=== PATIENT | female | born 1980 | race Two or more races ===

== ENCOUNTER 2020-10-02 12:29 | Inpatient (IN) | payer MEDICAID, OTHER ==
[~2020-10-02] VITALS: Ht 162.6 cm; Wt 82.6 kg
[2020-10-02] MEDS ORDERED: THIAMINE 100mg/ml INJ (200mg/2ml VIAL) IV ONE (12:45)
[2020-10-02] MEDS ORDERED: SODIUM CHLORIDE 0.9% 1,000 ML IV ONE ×2 (12:45)
[2020-10-02] MEDS ORDERED: ONDANSETRON HCL 4 MG/2 ML VIAL IV ONE (13:00)
[2020-10-02 13:12] LABS: Basophils # (auto) 0.1 10 ^3/uL (0-0.2); Basophils % (auto) 0.3 % (0.0-2.0); Eosinophils # (auto) 0.1 10 ^3/uL (0-0.8); Eosinophils % (auto) 0.4 % (0.0-7.0); Hemoglobin 9.3 g/dL (12.2-16.2); Mean Corpuscular Volume 67.6 fL (80.0-100.0)
[2020-10-02 13:13] LABS: Lymphocytes # (auto) 3.7 10 ^3/uL (0.4-5.4); Lymphocytes % (auto) 22.7 % (10.0-50.0); Mean Corpuscular Hemoglobin 20.4 pg (28.0-32.0); Mean Corpuscular Hgb Conc. 30.2 g/dL (32.0-36.0); Monocytes % (auto) 6.4 % (0.0-12.0); Neutrophils # (auto) 11.5 10 ^3/uL (1.6-8.6); Neutrophils % (auto) 70.2 % (37.0-80.0); Platelet Count (auto) 488 10^3/uL (140-450); Red Blood Cells 4.58 10^6/uL (4.0-5.20); Red Cell Distribution Width 19.2 % (11.8-14.3); White Blood Cell 16.4 10^3/uL (4.4-10.8)
[2020-10-02 13:26] LABS: Albumin 3.3 g/dL (3.4-5.0); Anion Gap 11 (5-15); BUN/Creatinine Ratio 7.9; Blood Urea Nitrogen 8 mg/dL (7-18); Calcium 8.1 mg/dL (8.5-10.1); Carbon Dioxide 19 mmol/L (21-32); Chloride 109 mmol/L (98-107); GFR African American 78 mL/min; GFR Non-African American 65 mL/min; Glucose 122 mg/dL (74-106); Potassium 3.3 mmol/L (3.5-5.1); Sodium 139 mmol/L (136-145)
[2020-10-02 13:31] LABS: Alanine Aminotransferase 25 U/L (13-56); Alkaline Phosphatase 88 U/L (45-117); Aspartate Aminotransferase 16 U/L (15-37); Bilirubin, Total 0.3 mg/dL (0.2-1.0); Total Protein 7.3 g/dL (6.4-8.2)
[2020-10-02] MEDS ORDERED: MORPHINE SULF INJ 2 MG/ML SYRINGE 1ML IV PRN ×2 (14:00)
[2020-10-02] MEDS ORDERED: HYDROcodone-ACET 5/325MG TAB PO PRN (14:00)
[2020-10-02] MEDS ORDERED: NITROGLYCERIN 0.4 MG SL TAB SL PRN (14:00)
[2020-10-02] MEDS ORDERED: LORazepam 2MG/ML-1ML VIAL IV PRN ×3 (14:00→17:00)
[2020-10-02] MEDS ORDERED: ACETAMINOPHEN 325 MG TAB PO PRN (14:00)
[2020-10-02] MEDS ORDERED: chlordiazePOXIDE HCL 5 MG CAP PO PRN (14:00)
[2020-10-02] MEDS ORDERED: FOLIC ACID 1 MG, MULTIPLE VITAMIN 10 ML, MAGNESIUM SULF SDV 50% 8 MEQ, THIAMINE INJ 100... INJ ONE ×5 (14:30)
[2020-10-02 20:29] LABS: Urine Bacteria FEW /hpf (None Seen); Urine Blood Negative /uL (Negative); Urine Hyaline Cast MOD /lpf (0 - 2); Urine Specific Gravity 1.007 (1.001-1.035); Urine WBC 24 /hpf (0 - 5)
[2020-10-02 20:50] LABS: Amphetamine Screen, Urine NEGATIVE (NEGATIVE); Barbiturate Scree,Urine NEGATIVE (NEGATIVE); Benzodiazephine Screen, Urine NEGATIVE (NEGATIVE); Cannabinoid Screen, Urine NEGATIVE (NEGATIVE); Cocaine Screen, Urine NEGATIVE (NEGATIVE); Opiate Scree,Urine NEGATIVE (NEGATIVE); Phencyclidine Screen, Urine NEGATIVE (NEGATIVE)
[2020-10-02 21:04] VITALS: BP 134/79
[2020-10-02 22:00] VITALS: BP 134/79
[2020-10-02] MEDS ORDERED: ONDANSETRON HCL 4 MG/2 ML VIAL IV PRN (23:00)
[2020-10-02] MEDS ORDERED: CHLO5CAP PO (23:47)
[2020-10-02] MEDS ORDERED: FOLI1TAB6 PO (23:47)
[2020-10-03] MEDS ORDERED: INFLUENZA QUAD 2020-2021 0.5 ML SYRG IM ONE
[2020-10-03 00:02] VITALS: BP 134/79
[2020-10-03] MEDS ORDERED: SERT-376 PO (00:07)
[2020-10-03 05:00] VITALS: BP 122/78
[2020-10-03 08:30] VITALS: BP 120/79
[2020-10-03 08:55] LABS: Basophils # (auto) 0 10 ^3/uL (0-0.2); Eosinophils # (auto) 0 10 ^3/uL (0-0.8); Monocytes # (auto) 0.4 10 ^3/uL (0-1.3)
[2020-10-03 08:56] LABS: Basophils % (auto) 0.3 % (0.0-2.0); Eosinophils % (auto) 0.3 % (0.0-7.0); Hematocrit 29.3 % (36.0-46.0); Hemoglobin 9.1 g/dL (12.2-16.2); Lymphocytes # (auto) 1.7 10 ^3/uL (0.4-5.4); Lymphocytes % (auto) 17.2 % (10.0-50.0); Mean Corpuscular Hemoglobin 21.1 pg (28.0-32.0); Mean Corpuscular Hgb Conc. 31.2 g/dL (32.0-36.0); Mean Corpuscular Volume 67.7 fL (80.0-100.0); Monocytes % (auto) 4.5 % (0.0-12.0); Neutrophils # (auto) 7.5 10 ^3/uL (1.6-8.6); Neutrophils % (auto) 77.7 % (37.0-80.0); Platelet Count (auto) 372 10^3/uL (140-450); Red Blood Cells 4.32 10^6/uL (4.0-5.20); Red Cell Distribution Width 19.7 % (11.8-14.3); White Blood Cell 9.7 10^3/uL (4.4-10.8)
[2020-10-03] MEDS: SERTRALINE HCL 50 MG TAB PO SCH (08:59)
[2020-10-03 09:31] LABS: Magnesium 2.3 mg/dL (1.6-2.6); Potassium 4.3 mmol/L (3.5-5.1)
[2020-10-03 09:34] LABS: BUN/Creatinine Ratio 10.7
[2020-10-03] MEDS ORDERED: ALPRAZolam 0.25 MG TAB PO PRN (10:15)
[2020-10-03 12:30] VITALS: BP 120/73
[2020-10-03] MEDS: FOLIC ACID 1 MG, MULTIPLE VITAMIN 10 ML, MAGNESIUM SULF SDV 50% 8 MEQ, THIAMINE INJ 100... INJ SCH ×5 (13:41)
[2020-10-03 16:31] VITALS: BP 121/79
[2020-10-03 22:00] VITALS: BP 127/77
[2020-10-04 05:00] VITALS: BP 124/79
[2020-10-04 06:33] LABS: Basophils # (auto) 0 10 ^3/uL (0-0.2); Eosinophils # (auto) 0.1 10 ^3/uL (0-0.8); Lymphocytes # (auto) 2.4 10 ^3/uL (0.4-5.4); Monocytes # (auto) 0.6 10 ^3/uL (0-1.3); Neutrophils # (auto) 5.7 10 ^3/uL (1.6-8.6); Neutrophils % (auto) 64.4 % (37.0-80.0); White Blood Cell 8.8 10^3/uL (4.4-10.8)
[2020-10-04 06:36] LABS: Basophils % (auto) 0.2 % (0.0-2.0); Hematocrit 29.3 % (36.0-46.0); Lymphocytes % (auto) 27.3 % (10.0-50.0); Mean Corpuscular Hgb Conc. 30.9 g/dL (32.0-36.0); Mean Corpuscular Volume 68.1 fL (80.0-100.0); Monocytes % (auto) 7.1 % (0.0-12.0); Platelet Count (auto) 357 10^3/uL (140-450); Red Cell Distribution Width 19.5 % (11.8-14.3)
[2020-10-04 06:50] LABS: BUN/Creatinine Ratio 11.1; Calcium 7.8 mg/dL (8.5-10.1); Magnesium 2.3 mg/dL (1.6-2.6); Potassium 4.1 mmol/L (3.5-5.1)
[2020-10-04 09:00] VITALS: BP 121/76
[2020-10-04] MEDS: SERTRALINE HCL 50 MG TAB PO SCH (09:20)
[2020-10-04] MEDS: FOLIC ACID 1 MG, MULTIPLE VITAMIN 10 ML, MAGNESIUM SULF SDV 50% 8 MEQ, THIAMINE INJ 100... INJ SCH ×5 (12:06)
[2020-10-04 13:00] VITALS: BP 122/78
== END 2020-10-04 14:54 | disposition home or self-care (01) | DRG 816 ==
LOC: ER 12:29 → EDBD 12:29 → TELE 14:00 → TELE-WESTW 21:00
PROVIDERS: ADMIT Internal Medicine; ATTEND Internal Medicine
DX: T51.0X1A Toxic effect of ethanol, accidental (unintentional), initial encounter (principal); G92 Toxic encephalopathy; I95.9 Hypotension, unspecified; E87.2 Acidosis; D64.9 Anemia, unspecified; E11.9 Type 2 diabetes mellitus without complications; D72.829 Elevated white blood cell count, unspecified; F10.220 Alcohol dependence with intoxication, uncomplicated; F41.9 Anxiety disorder, unspecified; Z20.822 Contact with and (suspected) exposure to COVID-19; F41.0 Panic disorder [episodic paroxysmal anxiety]; I10 Essential (primary) hypertension; J45.909 Unspecified asthma, uncomplicated; Z79.899 Other long term (current) drug therapy; Z87.891 Personal history of nicotine dependence; Y90.2 Blood alcohol level of 40-59 mg/100 ml
CPT/HCPCS: 36415; 70450; 70551; 71045; 80048; 80053; 80307; 80320; 81001; 83735; 84484; 85025; 87426; 93005; 95819; 96361; 96374; 96375; 99291; G0378; J2405